=== PATIENT | female | born 1995 | race African-American/Black ===

== ENCOUNTER 2018-06-03 21:11 | Emergency (ER) | payer OTHER ==
[2018-06-03] MEDS ORDERED: PENICILLIN VK 250 MG TABLET PO STA (23:01)
[2018-06-03] MEDS ORDERED: DEXAMETHASONE 10 MG/ML VIAL PO STA (23:01)
--- NOTE | 2018-06-03 23:03 | ED Physician Documentation ---
History of Present Illness - Stated complaint Stated Complaint: SORE THROAT/FEVER/LT EAR PX - Chief complaint Chief Complaint: Heent - History obtained from History obtained from: Patient - History of Present Illness Timing: How many days ago (3) Pain level max: 6 Pain level now: 5 - Additonal information Additional information: 23-year-old female presents to the emergency department with a sore throat for the past 3 days. Has had subjective fevers. Chills. Minimal cough. No rhinorrhea or congestion. Worse with swallowing, nothing makes it better. Review of Systems Throat: reports: Sore throat GI: denies: Abdominal Pain, Vomiting, Diarrhea : denies: Now EGA Skin: denies: Rash PD PAST MEDICAL HISTORY - Past Medical History Past Medical History: No - Past Surgical History Past Surgical History: No - Present Medications Home Medications: Ambulatory Orders Medication Instructions Recorded Confirmed Ibuprofen [Motrin] 800 mg PO Q8H PRN #30 tablet 06/03/18 Penicillin V Potassium 500 mg PO Q6HR #40 tablet 06/03/18 - Allergies Allergies/Adverse Reactions: Allergies Allergy/AdvReac Type Severity Reaction Status Date / Time No Known Drug Allergies Allergy Verified 06/03/18 21:24 - Social History Does the pt smoke?: No Smoking Status: Never smoker Does the pt drink ETOH?: Yes Does the pt have substance abuse?: No - Immunizations Immunizations are current?: Yes PD ED PE NORMAL - Vitals Vital signs reviewed: Yes - General General: Alert and oriented X 3, No acute distress, Well developed/nourished - HEENT HEENT: PERRL, Ears normal, Moist mucous membranes, Other (Moderate posterior oropharyngeal erythema with tonsillar exudates. Uvula midline. No trismus. Normal phonation) - Neck Neck: Supple, no meningeal sign, Other (Shotty anterior lymphadenopathy) - Cardiac Cardiac: RRR - Respiratory Respiratory: No respiratory distress, Clear bilaterally - Abdomen Abdomen: Soft, Non tender, Non distended - Derm Derm: Warm and dry, No rash - Neuro Neuro: Alert and oriented X 3 - Psych Psych: Normal mood, Normal affect Results - Vitals Vitals: Vital Signs - 24 hr 06/03/18 06/03/18 21:23 23:10 Temperature 36.3 C L 36.0 C L Heart Rate 94 79 Respiratory 20 20 Rate Blood Pressure 140/87 H 126/88 H O2 Saturation 98 100 Oxygen O2 Source Room air - Labs Labs: Microbiology 06/03/18 22:22 Group A Strep Throat Culture - Preliminary Throat Laboratory Tests 06/03/18 22:22 Group A Strep Rapid Negative PD MEDICAL DECISION MAKING - ED course Complexity details: reviewed results, considered differential, d/w patient ED course: 23-year-old female with what appears to be streptococcal pharyngitis clinically. Rapid strep is negative, but given her clinical history, will treat with antibiotics. Patient is well-appearing, nontoxic. Patient counseled regarding signs and symptoms for which I believe and urgent re-evaluation would be necessary. Patient with good understanding of and agreement to plan and is comfortable going home at this time This document was made in part using voice recognition software. While efforts are made to proofread this document, sound alike and grammatical errors may occur. Departure - Departure Disposition: 01 Home, Self Care Clinical Impression: Strep pharyngitis Condition: Good Instructions: ED Strep Pharyngitis Poss Follow-Up: Your,doctor in 1 week [Other] Prescriptions: Penicillin V Potassium 500 mg PO Q6HR #40 tablet Ibuprofen [Motrin] 800 mg PO Q8H PRN #30 tablet PRN Reason: PAIN &/OR FEVER Comments: Go home and rest. Return if you worsen. Take all antibiotics until gone. Follow-up with your doctor for further care. Forms: Activity restrictions Discharge Date/Time: 06/03/18 23:11
[2018-06-03 23:11] VITALS: BP 126/88
== END 2018-06-03 23:11 | disposition home or self-care (01) ==
LOC: ED 21:11
DX: J02.0 Streptococcal pharyngitis (principal)
CPT/HCPCS: 87070; 87430; 99283; A9270

== ENCOUNTER 2018-09-18 16:16 | Emergency (ER) | payer OTHER ==
[2018-09-18 16:37] VITALS: BP 126/78
--- NOTE | 2018-09-18 16:40 | ED Physician Documentation ---
History of Present Illness - Stated complaint Stated Complaint: SORE THROAT/L EAR PX - Chief complaint Chief Complaint: Heent - History obtained from History obtained from: Patient - Additonal information Additional information: Patient is a previously healthy 23-year-old female presenting with complaints of nasal congestion, rhinorrhea, left ear pressure, and sore throat over the past several days. Patient also complains of subjective fever, but denies productive cough, difficulty breathing, abdominal pain, vomiting, urinary or stool changes. Patient has taken dowt-whb-jtvclja medications with minimal relief. No other improving or worsening factors noted. Review of Systems Constitutional: reports: Fever Ears: reports: Ear pain Nose: reports: Rhinorrhea / runny nose, Congestion Respiratory: denies: Dyspnea, Cough PD PAST MEDICAL HISTORY - Past Medical History Past Medical History: No - Past Surgical History Past Surgical History: No - Present Medications Home Medications: Ambulatory Orders Medication Instructions Recorded Confirmed Ibuprofen [Motrin] 800 mg PO Q8H PRN #30 tablet 06/03/18 Penicillin V Potassium 500 mg PO Q6HR #40 tablet 06/03/18 Amox/Clav 875/125 [Augmentin] 1 each PO Q12H #7 tablet 09/18/18 - Allergies Allergies/Adverse Reactions: Allergies Allergy/AdvReac Type Severity Reaction Status Date / Time No Known Drug Allergies Allergy Verified 09/18/18 16:37 - Social History Does the pt smoke?: No Smoking Status: Never smoker Does the pt drink ETOH?: Yes Does the pt have substance abuse?: No - Immunizations Immunizations are current?: Yes PD ED PE NORMAL - Vitals Vital signs reviewed: Yes - General General: Alert and oriented X 3, No acute distress, Well developed/nourished - HEENT HEENT: Atraumatic, Ears normal, Moist mucous membranes, Dentition benign. No: Pharynx benign (Mild erythema throughout pharynx without significant swelling or exudate present. No uvulitis, uvular deviation or peritonsillar abscess. Cobblestoning present.) - Respiratory Respiratory: No respiratory distress, Clear bilaterally - Abdomen Abdomen: Soft, Non tender, Non distended - Derm Derm: Normal color, Warm and dry, No rash - Extremities Extremities: No deformity, No tenderness to palpate - Neuro Neuro: Alert and oriented X 3, No motor deficit, No sensory deficit - Psych Psych: Normal mood, Normal affect Results - Vitals Vitals: Vital Signs - 24 hr 09/18/18 16:35 Temperature 36.5 C Heart Rate 74 Respiratory 14 Rate Blood Pressure 126/78 O2 Saturation 100 Oxygen O2 Source Room air - Labs Labs: Laboratory Tests 09/18/18 16:35 Group A Strep Rapid Negative PD MEDICAL DECISION MAKING - ED course Complexity details: reviewed results, re-evaluated patient, considered differential, d/w patient ED course: Patient presenting with generalized URI symptoms also concerning for sinusitis, tonsillitis, pharyngitis, otitis. Physical exam reveals mild changes to the pharynx and rapid strep test negative. Additionally, do not find evidence of otitis media, otitis externa, or mastoiditis. Do not have concerns for pneumonia at this time. Patient is otherwise well-hydrated and nontoxic- appearing. Do not feel she is a high risk for sepsis or systemic illness. Do feel that it would be appropriate to start treatment for likely sinus infection with antibiotics and other zzkg-[id number]-uwgdahs medications, which was discussed with patient. Also discussed other supportive cares, return precautions, appropriate follow-up. Patient voiced understanding and is comfortable with discharge plan. Departure - Departure Disposition: 01 Home, Self Care Clinical Impression: Sinusitis Qualifiers: Sinusitis location: unspecified location Chronicity: acute Recurrence: not specified as recurrent Qualified Code(s): J01.90 - Acute sinusitis, unspecified Condition: Good Instructions: ED Sinusitis Abx Tx Follow-Up: your,doctor [Other] - Within 3 Days Prescriptions: Amox/Clav 875/125 [Augmentin] 1 each PO Q12H #7 tablet Comments: May use antibiotics for possible sinus infection. Also recommend other wxiz-kmn-[id number] occasions such as nasal decongestants like Afrin or nasal flushing. May only use Afrin for a total of 3 days. Also try ibuprofen/Tylenol for pain and inflammation relief. Recommend hydration, healthy diet, and follow-up with primary care physician in the next 2 to 3 days. Return to ED sooner if experience worsening symptoms or have other concerns.
== END 2018-09-18 17:30 | disposition home or self-care (01) ==
LOC: ED 16:16
DX: J01.90 Acute sinusitis, unspecified (principal)
CPT/HCPCS: 87070; 87077; 87430; 99283

== ENCOUNTER 2019-05-18 21:11 | Emergency (ER) | payer OTHER ==
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
[2019-05-18] MEDS ORDERED: ACETAMINOPHEN 325 MG TABLET PO STA (21:47)
[2019-05-18 22:05] LABS: HCG UR QUAL NEGATIVE
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
[2019-05-18 22:58] VITALS: BP 120/70
== END 2019-05-18 23:05 | disposition home or self-care (01) ==
LOC: ED 21:11
DX: M62.838 Other muscle spasm (principal); Z04.1 Encounter for examination and observation following transport accident
CPT/HCPCS: 72040; 72080; 81025; 99284; A9270

== ENCOUNTER 2020-07-22 09:19 | Emergency (ER) | payer OTHER ==
--- OUTSIDE RECORDS SUMMARY | 2020-07-22 09:46 | EXTERNAL MEDICAL SUMMARY RPT | Continuity of Care Document ---
:1995 Demographics Phone Unavailable Preferred Language Unknown Marital Status Unknown Bahai Affiliation Unknown Race Unknown Ethnic Group Unknown Author Organization [facility] Address [address] [place] [address] Phone Social History date description facility [phone]
[2020-07-22 09:52] LABS: BILIRUBIN,URINE NEGATIVE (NEGATIVE); GLUCOSE, URINE (UA) NEGATIVE (NEGATIVE); KETONES,URINE (UA) NEGATIVE (NEGATIVE); LEUKOCYTE ESTERASE, URINE NEGATIVE (NEGATIVE); NITRITE,URINE NEGATIVE (NEGATIVE); OCCULT BLOOD,URINE NEGATIVE (NEGATIVE); PH,URINE 7.5 PH (5.0-7.5); PROTEIN,URINE NEGATIVE (NEGATIVE); UROBILINOGEN,URINE 0.2 (NORMAL) E.U./dL (NORMAL)
[2020-07-22 09:53] LABS: CLARITY,URINE CLEAR (CLEAR); HCG UR QUAL POSITIVE
--- NOTE | 2020-07-22 10:16 | ED Physician Documentation ---
PD HPI FEMALE - Stated complaint Stated Complaint: FEMALE - Chief complaint Chief Complaint: Abd Pain - History obtained from History obtained from: Patient - Additional information Additional information: Patient comes emergency department chief complaint of low abdominal cramping and pain and spotting. Patient is about 7 weeks and states that she has been quite nauseated but has not been vomiting. She states that she all throughout the has had some sense of generalized lower abdominal discomfort, but that seems to be getting worse in the suprapubic area radiating a bit to each side. Patient states this is her first . She has had some OB care so far but not an ultrasound demonstrating IUP yet. Patient does have a history of PCOS. She denies fevers or chills. No bowel symptoms. She has never had any lower abdominal or pelvic surgeries. No other complaints at this time. Review of Systems Ten Systems: 10 systems reviewed and negative Constitutional: reports: Reviewed and negative Eyes: reports: Reviewed and negative Ears: reports: Reviewed and negative Nose: reports: Reviewed and negative Throat: reports: Reviewed and negative Cardiac: reports: Reviewed and negative Respiratory: reports: Reviewed and negative GI: reports: Abdominal Pain : reports: Vaginal bleeding, Now EGA Skin: reports: Reviewed and negative Musculoskeletal: reports: Reviewed and negative Neurologic: reports: Reviewed and negative Psychiatric: reports: Reviewed and negative Endocrine: reports: Reviewed and negative Immunocompromised: reports: Reviewed and negative PD PAST MEDICAL HISTORY - Past Medical History Past Medical History: Yes - Past Surgical History Past Surgical History: No - Present Medications Home Medications: Ambulatory Orders Medication Instructions Recorded Confirmed Ondansetron Odt [Zofran] 4 mg TL Q6H PRN #20 tablet 07/22/20 Pnv No.95/Ferrous Fum/Folic AC 1 each PO DAILY 07/22/20 07/22/20 [ [place]] - Allergies Allergies/Adverse Reactions: Allergies Allergy/AdvReac Type Severity Reaction Status Date / Time No Known Drug Allergies Allergy Verified 07/22/20 09:26 - Social History Does the pt smoke?: No Smoking Status: Never smoker Does the pt drink ETOH?: Yes Does the pt have substance abuse?: No - Immunizations Immunizations are current?: Yes PD ED PE NORMAL - Vitals Vital signs reviewed: Yes - General General: Alert and oriented X 3, No acute distress, Well developed/nourished - HEENT HEENT: Atraumatic, PERRL, EOMI, Moist mucous membranes - Neck Neck: Supple, no meningeal sign - Cardiac Cardiac: RRR, No murmur, Strong equal pulses - Respiratory Respiratory: No respiratory distress, Clear bilaterally - Abdomen Abdomen: Soft, Non distended, Other (Suprapubic tenderness moderate, no rebound or guarding. Tenderness bilateral lower quadrants, less than suprapubic area) - Derm Derm: Normal color, Warm and dry, No rash - Extremities Extremities: No deformity - Neuro Neuro: Alert and oriented X 3, cardiopulmonary technologist 2-12 intact, Normal speech, Other (Grossly normal.) - Psych Psych: Normal mood, Normal affect Results - Vitals Vitals: Oxygen O2 Source Room air - Labs Labs: Laboratory Tests 07/22/20 09:36 Urine Color YELLOW Urine Clarity CLEAR Urine pH 7.5 Ur Specific [place] 1.020 Urine Protein NEGATIVE Urine Glucose (UA) NEGATIVE Urine Ketones NEGATIVE Urine Occult Blood NEGATIVE Urine Nitrite NEGATIVE Urine Bilirubin NEGATIVE Urine Urobilinogen 0.2 (NORMAL) Ur Leukocyte Esterase NEGATIVE Ur Microscopic Review NOT INDICATED Urine Culture Comments NOT INDICATED Urine HCG, Qual POSITIVE - Rads (name of study) OB US Radiology: Final report received, EMP read indepedently, See rad report (Early IUP, uncertain viability. Subchorionic hemorrhage.) PD MEDICAL DECISION MAKING - ED course Complexity details: reviewed results, re-evaluated patient, considered differential, d/w patient ED course: The patient was worked up with urinalysis, test, and OB ultrasound. US showed an IUP with fetus and appearance of heartbeat, which per tech, could not be quantified. Small subchorionic hemorrhage noted. I d/w pt that she does not have an ectopic , but that it is too early to know how her IUP will progress. She has an appt with her OB at [facility] in about a week and a half, and this will be a good time to get a repeat US. We have discussed the usual indications for return. Departure - Departure Disposition: 01 Home, Self Care Clinical Impression: Threatened in first trimester Condition: Stable Instructions: ED Miscarriage Poss Prescriptions: Ondansetron Odt [Zofran] 4 mg TL Q6H PRN #20 tablet PRN Reason: Nausea / Vomiting Comments: Your ultrasound shows a that is in the uterus, with an appropriately sized sac and fetus. The fetus is very small and Appears to have a heartbeat; however, it is clearly and the exact heart rate is unable to be exactly determined. As such, you should have a repeat ultrasound in about 2 weeks, To be sure that the fetus is growing and the heart rate is clearly seen. There is no evidence of an ectopic/tubal . There is a small area of leakage of blood between the uterine Lining and the gestational sac. This is most likely the source of your bleeding. This is a common finding and usually heals itself in a matter of a few days to couple of weeks. Generally, it does not cause trouble with the itself. Discharge Date/Time: 07/22/20 11:16
[2020-07-22 11:15] VITALS: BP 122/83
--- NOTE | 2020-07-22 11:27 | Ultrasound Report ---
PROCEDURE: OB First Trimester INDICATIONS: 7 wks preg, cramping/spotting OUTSIDE/PRIOR DATING DATA: Last menstrual period (LMP): 06/06/2020. LMP-based estimated date of delivery (TRINIDAD): 03/13/2021. First dating scan (date and location): This study. Estimated date of delivery (TRINIDAD) from first dating scan: A viable intrauterine gestation is not yet s een. Assuming viable gestation from the mean sac diameter the current gestational age would be estima speedy at 6 weeks 2 days, +/- 17 days.. TECHNIQUE: Real-time scanning was performed of the fetus and maternal pelvic organs, with image documentation. COMPARISON: None FINDINGS: There is a intrauterine gestational sac with mean sac diameter 1.5 cm. This correlates wit h a gestational age of 6 weeks 2 days, +/- 7 days, assuming viable gestation. Embryo: A yolk sac is seen within the gestational sac but definite cardiac activity is not vis ualized. There is slight activity within the structure which likely represents the earliest man ifestation of initial cardiac activity. This may simply represent early phase of development when the heart activity has not yet developed. There is a small fluid collection at the gestational margin me asuring 2.1 x 1.1 x 0.9 cm. Measurement variability in dating: +/- 4 weeks by LMP, +/- 7 days by mean sac diameter (use before 6 weeks gestation if crown-rump length not able to be measured), +/- 5 days by crown-rump length (6-12 weeks gestation). Maternal organs: Ovaries normal. IMPRESSION: Single intrauterine gestation but viability has not yet been definitively established. There is no claros spicion for ectopic . The current gestational sac would correlate with a gestational age of 6 weeks 2 days +/- 7 days. Correlation with quantitative beta hCG may be helpful in establishing whet her viable gestation should be visualized. Generally follow-up in 7-10 days by early first trimester OB ultrasound would be obtained in this clinical circumstance. Slight subchorionic "implantation hemorrhage" appears present. Reviewed by: Evan Gonzalez MD on 07/22/2020 11:26 AM PDT Approved by: Evan Gonzalez MD on 07/22/2020 11:26 AM PDT Station ID: [id number]
--- NOTE | 2020-07-22 11:32 | Ultrasound Report ---
PROCEDURE: OB Transvaginal INDICATIONS: 7 weeks preg, cramping/spotting TECHNIQUE: The transabdominal and transvaginal scanning for this first trimester evaluation is reported as a combined study, and please refer to the first trimester OB ultrasound report from [facility] for these findings. COMPARISON: None. FINDINGS: Please see first trimester OB ultrasound report, combined study. IMPRESSION: Please see first trimester OB ultrasound report, combined study. Reviewed by: Evan Gonzalez MD on 07/22/2020 11:31 AM PDT Approved by: Evan Gonzalez MD on 07/22/2020 11:31 AM PDT Station ID: [id number]
== END 2020-07-22 11:16 | disposition home or self-care (01) ==
LOC: ED 09:19
DX: O20.0 Threatened abortion (principal); O21.0 Mild hyperemesis gravidarum; O99.281 Endocrine, nutritional and metabolic diseases complicating pregnancy, first trimester; E28.2 Polycystic ovarian syndrome; Z3A.01 Less than 8 weeks gestation of pregnancy
CPT/HCPCS: 81001; 81003; 81025; 87086; 99284

== ENCOUNTER 2023-12-26 09:19 | Emergency (ER) | payer OTHER ==
--- NOTE | 2023-12-26 09:23 | ED Physician Documentation ---
PD HPI LOWER EXT INJURY - Stated complaint Stated Complaint: KNEE PX/INJURY - History obtained from History obtained from: Patient, EMS - Additional information Additional information: 28-year-old woman with no possibility of and otherwise healthy was crouching down and suddenly felt severe pain on the lateral side of the right knee. There was no fall or injury otherwise. Pain is still quite significant despite [address] way here. No history of trouble with that knee or any joint issues in the past. PD PAST MEDICAL HISTORY - Past Surgical History Past Surgical History: No - Present Medications Home Medications: Ambulatory Orders Medication Instructions Recorded Confirmed HYDROcod/ACETAM 5/325 [Durand 5/325] 1 - 2 tab PO Q6H PRN #15 tablet 12/26/23 Ibuprofen [Motrin] 800 mg PO Q8H PRN #30 tablet 12/26/23 - Allergies Allergies/Adverse Reactions: Allergies Allergy/AdvReac Type Severity Reaction Status Date / Time No Known Drug Allergies Allergy Verified 12/26/23 09:25 - Social History Does the pt smoke?: No Smoking Status: Never smoker Does the pt drink ETOH?: Yes Does the pt have substance abuse?: No - Immunizations Immunizations are current?: Yes PD ED PE NORMAL - Vitals Vital signs reviewed: Yes - General General: Alert and oriented X 3, No acute distress - Extremities Extremities: Other (No deformity of the right knee. Specifically she does not seem to have a patellar dislocation. She is tender over the lateral joint line and cannot range it.) - Neuro Neuro: Alert and oriented X 3 Results - Vitals Vitals: Vital Signs - 24 hr 12/26/23 12/26/23 12/26/23 09:25 09:35 11:10 Temperature 36.3 C L 36.4 C L Heart Rate 71 74 80 Respiratory 16 16 17 Rate Blood Pressure 112/77 114/74 109/69 O2 Saturation 97 99 99 Oxygen O2 Source Room air - Rads (name of study) Three-view x-ray right knee was negative. Relevant Findings:: Final report received, EMP independent interpretation of test PD Medical Decision Making - ED course ED course: She presents with knee pain while bending over. No true injury such as a fall. Tender over the lateral joint line but LCL testing was intact. X-rays negative. Her pain was controlled and she was placed in a splint and up on c rutches with advised orthopedic follow-up if not improved quickly. Departure - Departure Disposition: 01 Home, Self Care Clinical Impression: Lateral collateral ligament sprain of knee Qualifiers: Encounter type: initial encounter Laterality: right Qualified Code(s): S83.421A - Sprain of lateral collateral ligament of right knee, initial encounter Condition: Good Record reviewed to determine appropriate education?: Yes Instructions: ED Knee Pain [facility] Follow-Up: Orthopedic Care [Provider Group] Prescriptions: Ibuprofen [Motrin] 800 mg PO Q8H PRN #30 tablet PRN Reason: PAIN &/OR FEVER HYDROcod/ACETAM 5/325 [Durand 5/325] 1 - 2 tab PO Q6H PRN #15 tablet PRN Reason: Pain Comments: The x-ray looks okay, and given the location of your pain I suspect you probably have a strain of the lateral collateral ligaments of the right knee. If it does not get better in short order, follow-up with our orthopedics office, the numbers on this form. [facility] [place]. I am prescribing a short course of narcotic pain medication for you. These are potentially dangerous and addictive medications that should be used carefully. These medications may constipate you. Take an whuf-nef-iwjdnjk stool softener (docusate) twice daily with plenty of water while taking these medications. If you go 24 hours without a bowel movement, take gewn-uqf-fjjumwv miralax, per package instructions. Do not drink or drive while taking these medications. If you received narcotic or sedating medications while in the emergency department, do not drive for 24 hours. Store this medication in a safe, secure place and out of reach of children. It is a violation of federal law to give or sell this medication to another person or to use in a manner other than prescribed. The ED will not refill narcotic prescriptions, including prescriptions lost or stolen. To dispose of unwanted medications: 1. [facility] provides a drop box for medication in pill form only (no liquids) 8:00 am to 4:30 p.m. Monday-Monday in the lobby of the [facility], [address] [place] [address]. Empty pills into ziplock bag before disposal. Call [phone] for information. 2.[employer] is a free service available to all [facility] residents. Go to [email or web address] Note that many narcotic pain relievers also contain Tylenol/acetaminophen. Please ensure that your total dose of acetaminophen from all sources does not exceed 3 g (3000 mg) per day. Forms: Activity restrictions Discharge Date/Time: 12/26/23 11:11
[2023-12-26] MEDS: KETOROLAC 15 MG/ML VIAL IVP STA (09:34)
[2023-12-26 09:47] VITALS: O2SAT 99
--- NOTE | 2023-12-26 10:07 | XRAY Report ---
PROCEDURE: Knee 4+V RT INDICATIONS: knee pain TECHNIQUE: 4 views of the knee(s) were acquired. COMPARISON: None. FINDINGS: Bones: No fractures or dislocations. No suspicious bony lesions. Soft tissues: No knee joint effusion. No suspicious soft tissue calcifications or masses. IMPRESSION: No acute bony abnormality. If pain persists with conservative management, consider repeat x-ray in 10 -14 days or cross-sectional imaging. Reviewed by: Rosendo Mandujano MD on 12/26/2023 10:06 AM PDT Approved by: Rosendo Mandujano MD on 12/26/2023 10:06 AM PDT Station ID: [id number]
[2023-12-26 11:17] VITALS: BP 109/69
== END 2023-12-26 11:11 | disposition home or self-care (01) ==
LOC: EDUNIT# → ED 09:19
DX: S83.421A Sprain of lateral collateral ligament of right knee, initial encounter (principal); X50.1XXA Overexertion from prolonged static or awkward postures, initial encounter; Y93.89 Activity, other specified
CPT/HCPCS: 96374; 99284